=== PATIENT | male | born 1980 | race Two or more races ===

== ENCOUNTER 2020-03-03 13:43 | Emergency (ER) | payer BC ==
[~2020-03-03] VITALS: Ht 170.2 cm; Wt 86.2 kg
[2020-03-03 13:50] VITALS: BP 136/88
[2020-03-03] MEDS ORDERED: TDAP [DIPH/PERTUSSIS/TET] 0.5 ML VIAL IM ONE ×2 (14:23→14:30)
--- NOTE | 2020-03-03 14:37 | NUR ---
Patient discharged to home in stable condition. Written and verbal after care instructions given. Patient verbalizes understanding of instruction.
== END 2020-03-03 14:39 | disposition home or self-care (01) ==
LOC: ER 13:48
DX: S61.412A Laceration without foreign body of left hand, initial encounter (principal); S50.812A Abrasion of left forearm, initial encounter; W25.XXXA Contact with sharp glass, initial encounter; Y93.89 Activity, other specified; Y92.89 Other specified places as the place of occurrence of the external cause; Y99.8 Other external cause status
CPT/HCPCS: 12001; 73130; 90471; 90715; 99283; A6403